=== PATIENT | female | born 1990 | race Caucasian/White ===

== ENCOUNTER 2018-06-09 11:46 | Inpatient (IN) ==
--- NOTE | 2018-06-09 12:39 | ED ---
History of Present Illness Primary Care Physician: No Primary Care Physician Jyoti Chief Complaint: uterine contractions History of Present Illness: Patient is a 28 yo at 39 weeks and 2 days. EDC 06-14-2018, care with Dr Montes, previously uncomplicated. Pt reports regular contractions , every 6-8 minutes, since 06:00 this morning. Pt states she was 4cm when examined in the office yesterday. She denies any vaginal bleeding or leaking. GBS is negative. She reports active movements. Weeks Gestation:: 39 Para: 0 : 2 Review of Systems All other systems reviewed negative except as stated in HPI PMFSH - Medical / Surgical Hx Neg / Unobtainable Medical Problems Denied: Yes Surgical History: No Previous Surgery - Social History I have reviewed the patient's Social History: Yes - Tobacco History Second Hand Smoke Exposure: No Tobacco Use In Past 30 Days: No Smoking Status: Never smoker - Alcohol History How Often Do You Have a Drink Containing Alcohol: Never - Substance Use History Substance History: No History of Abuse - Travel History Recent Travel in the [facility] Within the Last 8 Weeks: No Recent Travel Out of the Country Within the Last 8 Weeks: No Medications and Allergies Allergies Allergy/AdvReac Type Severity Reaction Status Date / Time No Known Allergies Allergy none Uncoded 06/09/18 12:03 Home Medications Medication Instructions Recorded Confirmed Type No Known Home Medications 06/09/18 06/09/18 History Exam Vital signs: Vital Signs 06/09/18 12:15 Temperature 97.6 F Pulse Rate 73 Respiratory Rate 17 Blood Pressure 136/69 Intake & Output 06/08/18 06/09/18 06/09/18 18:59 06:59 18:59 Weight 86.183 kg Narrative: GENERAL: Well-nourished, well-developed patient. SKIN: Warm and dry. HEAD: Normocephalic and atraumatic. EYES: No scleral icterus. No injection or drainage. ENT: No nasal drainage noted. Mucous membranes pink. Airway patent. NECK: Supple, trachea midline. No JVD. CARDIOVASCULAR: Regular rate and rhythm without murmurs, gallops, or rubs. RESPIRATORY: Breath sounds equal bilaterally. No accessory muscle use. BREASTS: Bilateral exam showed no masses , no retractions, no nipple discharge. ABDOMEN/GI: Abdomen soft, non-tender, bowel sounds present, no rebound, no guarding Gravid to [38] weeks size Fundal Height: [38] GENITOURINARY: External Genitalia: intact and normal in appearance BUS glands: [wnl] Cervix: [soft] Dilatation: [6cm] Effacement: [90%] Station: [0] Presentation: [vertex] Membranes: [intact] Uterine Contractions: [1-8 minutes apart] PELVIS adequate, EFW by Angel's 7and 1/2 lbs. FHT's: Category: [I] Baseline: [120s] Reactive: [-] Variability: [moderate] Decels: [none] EXTREMITIES: No cyanosis or edema. BACK: Nontender without obvious deformity. No CVA tenderness. NEUROLOGICAL: Awake and alert. Motor and sensory grossly within normal limits. Five out of 5 muscle strength in all muscle groups. Normal speech. - Constitutional no acute distress Assessment and Plan - Diagnosis (1) Elective delivery before 39 weeks of gestation Status: Acute (2) Admitted to labor and delivery Code(s): Z78.9 - Other specified health status Status: Acute Plan: Patient with 6cm cervical dilatation and regular contractions GBS status negative. Will admit to L&D in labor. Discussed with Dr Montes. Discharge Plan - Discharge Disposition Patient Disposition: 28 Still Patient - Discharge Condition Condition: Good - Discharge Details Diagnosis: with 39 completed weeks gestation, Admitted to labor and delivery - Physicians Team ED Provider: Ugo Velazquez Primary Care Provider: Primary Care Jessica Robert
[2018-06-09] MEDS ORDERED: Oxytocin 30 Units/500ml Premix 30 UNITS/500 ML BAG IV.SIG ONE (12:41)
[2018-06-09] MEDS ORDERED: Naloxone Inj 0.4 MG/ML Vial IV.PUSH PRN ×2 (12:41→17:32)
[2018-06-09] MEDS ORDERED: fentaNYL Citrate Inj 100 MCG/2 ML Ampul IV.PUSH PRN ×2 (12:41)
[2018-06-09] MEDS ORDERED: Sod Chloride 0.9% Inj 1,000 ML IV.CONT PRN (12:41)
[2018-06-09] MEDS ORDERED: Sodium Chlor 0.9% Inj 500 ML IV.SIG PRN (12:41)
[2018-06-09] MEDS ORDERED: Citric Acid/Sodium Citrate Liq 30 ML UDC PO SCH (12:45)
[2018-06-09 13:47] LABS: Baso # (Auto) 0.1 th/mm3 (0.0-0.2); Baso % (Auto) 0.9 % (0.0-2.0); Eos % (Auto) 0.1 % (0.0-4.0); Hemoglobin 11.7 gm/dL (11.6-15.3); Lymph # (Auto) 1.1 th/mm3 (1.0-4.8); Lymph % (Auto) 8.1 % (9.0-44.0); Mean Corpuscular HGB Conc 33.5 % (32.0-36.0); Mean Corpuscular Volume 86.5 fL (80.0-100.0); Mean Platelet Volume 8.1 fL (7.0-11.0); Mono # (Auto) 0.6 th/mm3 (0.0-0.9); Mono % (Auto) 4.3 % (0.0-8.0); Neut # (Auto) 11.5 th/mm3 (1.8-7.7); Neut % (Auto) 86.6 % (16.0-70.0); Platelet Count 246 th/mm3 (150-450); Red Blood Count 4.05 mil/mm3 (4.00-5.30); Red Cell Distribution Width 13.1 % (11.6-17.2); White Blood Count 13.3 th/mm3 (4.0-11.0)
[2018-06-09 13:50] LABS: Bilirubin,Urine Negative (Negative); Clarity,Urine Hazy (Clear); Color,Urine Yellow (Yellw/Straw); Glucose,Urine (UA) Negative (Negative); Leukocyte Esterase,Urine Trace (Negative); Mucus,Urine Few /lpf (Occasional); Nitrite,Urine Negative (Negative); Specific Gravity,Urine 1.013 (1.002-1.035); Squamous Epithelial Cell,Urine 1 /hpf (0-5)
[2018-06-09 13:56] LABS: Amphetamine Urine With Conf Neg (Neg); Benzodiazepine Urine With Conf Neg (Neg)
[2018-06-09] MEDS ORDERED: fentaNYL 2MCG-Bupiv 0.125% Epi 150 ML EPIDURAL ONE ×2 (14:48→15:00)
[2018-06-09] MEDS ORDERED: Lidocaine 2%/Epinephrine 1:200,000 PF Inj 20 ML Vial ONE (14:59)
[2018-06-09] MEDS ORDERED: Measles/Mumps/Rubella Vaccine Inj 0.5 ML Vial SQ ONE (16:00)
[2018-06-09] MEDS ORDERED: Diphtheria/Tetanus/Pertussis Vaccine Inj 0.5 ML Syringe IM ONE (16:00)
[2018-06-09] MEDS ORDERED: fentaNYL Citrate Inj 100 MCG/2 ML Ampul EPIDURAL ONE ×2 (16:07→16:31)
[2018-06-09] MEDS ORDERED: fentaNYL 2MCG-Bupiv 0.125% Epi 150 ML EPIDURAL PRN ×2 (16:07→16:31)
[2018-06-09] MEDS ORDERED: Lidocaine 1% Inj 50 ML Vial ONE (16:15)
[2018-06-09] MEDS ORDERED: Benzocaine 20% Top Spray 60 ML Can TOPICAL PRN (17:32)
[2018-06-09] MEDS ORDERED: Zolpidem Tartrate 5 MG Tablet PO PRN (17:32)
[2018-06-09] MEDS ORDERED: Witch Hazel 50%/Glyderin 12.5% 40 Pad Jar RECTAL PRN (17:32)
[2018-06-09] MEDS ORDERED: Acetaminophen 325 MG Tablet PO PRN (17:32)
[2018-06-09] MEDS ORDERED: Oxytocin 30 Units/500ml Premix 30 UNITS/500 ML BAG IV.CONT PRN (17:32)
[2018-06-09] MEDS ORDERED: Bisacodyl 10 MG Supp RECTAL PRN (17:32)
--- NOTE | 2018-06-09 17:35 | P.OBDELI ---
Weeks Gestation: 39 Patient Started Active Labor: Yes Artificial Rupture of Membrane: No Anesthesia: Epidural Episiotomy: midline Vaginal Delivery: Normal Presentation: Occiput anterior Nuchal Cord: None Delayed Cord Clamping (45 sec): Yes Placenta: Spontaneous delivery, Intact, 3 vessel cord Laceration: Episiotomy, 2 deg Estimated blood loss (mL): 300 : Female, Single
[2018-06-09] MEDS: Senna/Docusate Sodium 8.6/50 MG Tablet PO SCH (21:40)
--- NOTE | 2018-06-10 10:52 | P.PNOB ---
Subjective Post day: 1 Objective Vital Signs/I&O: Vital Signs 06/09/18 12:15 06/09/18 14:09 06/09/18 14:55 Temperature 97.6 F Pulse Rate 73 66 91 H Respiratory Rate 17 Blood Pressure 136/69 136/78 138/74 06/09/18 15:10 06/09/18 15:40 06/09/18 15:56 Temperature Pulse Rate 81 83 81 Respiratory Rate Blood Pressure 113/51 L 111/55 L 119/71 06/09/18 16:31 06/09/18 17:43 06/09/18 18:00 Temperature Pulse Rate 75 111 H Respiratory Rate Blood Pressure 113/65 143/112 H 124/62 06/09/18 18:32 06/09/18 18:44 06/09/18 19:08 Temperature Pulse Rate 97 H 93 H Respiratory Rate 18 Blood Pressure 89/58 L 136/79 06/09/18 21:12 06/10/18 08:00 Temperature 98.0 F 98.6 F Pulse Rate 101 H 88 Respiratory Rate 17 16 Blood Pressure 125/74 118/79 Intake & Output 06/09/18 06/10/18 06/10/18 18:59 06:59 18:59 Weight 86 kg Other: Weight On Admission 86 kg Result Diagrams: 06/09/18 13:20 Objective Remarks: GENERAL: Well-nourished, well-developed patient. CARDIOVASCULAR: Regular rate and rhythm without murmurs, gallops, or rubs. RESPIRATORY: Breath sounds equal bilaterally. No accessory muscle use. ABDOMEN/GI: Abdomen soft, non-tender. Fundus: Firm, non-tender at umbilicus. GENITOURINARY: Light to moderate bleeding. EXTREMITIES: No cyanosis or edema, non-tender, without signs of DVT. Medications and IVs: Active Medications Acetaminophen (Tylenol) 650 mg PO Q4H PRN PRN Reason: PAIN SCALE 1 TO 2 Al Hydroxide/Mg Hydroxide (Milk Of Magnesia Liq) 30 ml PO Q12H PRN PRN Reason: Mild Constipation Benzocaine (Americaine 20% [place]) 1 spray TOPICAL Q4H PRN PRN Reason: For Perineum Discomfort Last Admin: 06/09/18 21:39 Dose: 1 spray Bisacodyl (Dulcolax Supp) 10 mg RECTAL DAILY PRN PRN Reason: SEVERE CONSITIPATION Citric Acid/Sodium Citrate (Sodium Citrate/Citric Acid Liq) 30 ml PO [employer] [facility] Stop: 06/13/18 12:44 Ephedrine Sulfate (Ephedrine/Ns Syringe) 10 mg IV.PUSH UNSCH PRN PRN Reason: SEE LABEL COMMENTS Stop: 06/10/18 16:31 Last Admin: 06/09/18 17:10 Dose: 10 mg Fentanyl Citrate (Fentanyl Inj) 50 mcg IV.PUSH Q1H PRN PRN Reason: Pain Scale 3 - 5 Fentanyl Citrate (Fentanyl Inj) 100 mcg IV.PUSH Q1H PRN PRN Reason: PAIN SCALE 6 TO 10 Lactated Ringer's (Lr 1000 Ml Inj) 1,000 mls @ 125 mls/hr IV.CONT .Q8H [facility] Last Admin: 06/09/18 20:15 Dose: Not Given Lactated Ringer's (Lr 1000 Ml Inj) 1,000 mls @ 3,000 mls/hr IV.SIG UNSCH PRN PRN Reason: compromise or epidural Last Admin: 06/09/18 17:09 Dose: 3,000 mls/hr Sodium Chloride (Ns Inj) 500 mls @ 1,000 mls/hr IV.SIG UNSCH PRN PRN Reason: SEE LABEL COMMENTS Sodium Chloride (Ns Inj) 1,000 mls @ 100 mls/hr IV.CONT .Q10H PRN PRN Reason: SEE LABEL COMMENTS Fentanyl/Bupivacaine/Sodium Chlor (Fentanyl 2 Mcg-Bupiv 0.125% Epi) 150 mls @ 12 mls/hr EPIDURAL PRN PRN PRN Reason: for Labor Pain Last Admin: 06/09/18 17:10 Dose: 12 mls/hr Oxytocin (Pitocin 30 Units/Ns 500 Ml Premix) 30 units in 500 mls @ 100 mls/hr IV.CONT UNSCH PRN PRN Reason: Heavy bleeding Last Admin: 06/09/18 18:52 Dose: 100 mls/hr Ibuprofen (Motrin) 800 mg PO Q8H PRN PRN Reason: For Cramping Last Admin: 06/10/18 06:53 Dose: 800 mg Lactulose (Lactulose Liq) 30 ml PO DAILY PRN PRN Reason: SEVERE CONSITIPATION Lidocaine HCl (Xylocaine 1% Inj) 10 ml INFILTRATN PRN PRN PRN Reason: For episiotomy repair Stop: 06/11/18 12:40 Lidocaine HCl (Xylocaine 1% Inj) 0.1 ml I-DERMAL PRN PRN PRN Reason: For IV start Stop: 06/12/18 12:40 Mineral Oil (Muri-Lube Oil) 10 ml TOPICAL PRN PRN PRN Reason: PRN perineal massage Last Admin: 06/09/18 17:11 Dose: 10 ml Miscellaneous Information (Misc Information) 1 each OTHER UNSCH PRN PRN Reason: SEE LABEL COMMENTS Stop: 06/10/18 16:31 Miscellaneous Information (Misc Information) 1 each OTHER UNSCH PRN PRN Reason: SEE LABEL COMMENTS Stop: 06/10/18 16:31 Naloxone HCl (Narcan Inj) 0.1 mg IV.PUSH Q2M PRN PRN Reason: for opiate reversal Naloxone HCl (Narcan Inj) 0.1 mg IV.PUSH Q2M PRN PRN Reason: for opiate reversal Ondansetron HCl (Zofran Odt) 4 mg PO Q6H PRN PRN Reason: NAUSEA OR VOMITING Oxycodone/Acetaminophen (Percocet 5/325 Mg) 1 tab PO Q4H PRN PRN Reason: PAIN SCALE 3 TO 5 Oxycodone/Acetaminophen (Percocet 5/325 Mg) 2 tab PO Q4H PRN PRN Reason: PAIN SCALE 6 TO 10 Senna/Docusate Sodium (Gemma-Colace) 1 tab PO BID [facility] Last Admin: 06/09/18 21:40 Dose: 1 tab Sennosides (Senokot) 17.2 mg PO Q12H PRN PRN Reason: Moderate Constipation Sodium Chloride (Ns Flush) 2 ml IV.FLUSH BID [facility] Last Admin: 06/09/18 20:15 Dose: Not Given Sodium Chloride (Ns Flush) 2 ml IV.FLUSH PRN PRN PRN Reason: FLUSH AFTER USING IV ACCESS Witch Christy/Glycerin (Tucks Pads) 1 applicatio RECTAL QID PRN PRN Reason: HEMORRHOIDS Last Admin: 06/09/18 21:39 Dose: 1 applicatio Zolpidem Tartrate (Ambien) 5 mg PO HS PRN PRN Reason: SLEEP Assessment and Plan - Plan PPD # 1 s/p doing well, routine care
[2018-06-10] MEDS: Senna/Docusate Sodium 8.6/50 MG Tablet PO SCH ×2 (12:26→21:35)
[2018-06-10 20:15] VITALS: RESP 18
[2018-06-11 08:06] VITALS: BP 135/76; PULSE 84; TEMP 98.6
[2018-06-11] MEDS: Senna/Docusate Sodium 8.6/50 MG Tablet PO SCH (16:01)
== END 2018-06-11 16:35 | disposition home or self-care (01) ==
LOC: HOBED 11:46 → H2E 12:27 → H1EA 19:58
PROVIDERS: ADMIT Obstetrics & Gynecology; ATTEND Obstetrics & Gynecology